=== PATIENT | female | born 1985 | race Caucasian/White ===

== ENCOUNTER 2016-06-08 08:09 | Day surgery (SDC) | payer BC ==
[~2016-06-08 08:09] MED LIST: Lidocaine 1%/Sod Bicarbonate in NS 8.4% 1 ML Syringe IV PRN; Sodium Chloride 0.9% 10 ML Syringe FLUSH PRN
[2016-06-08] MEDS ORDERED: Lidocaine 1% with EPINEPHrine 1:100,000 20 ML MDV ONE (08:28)
[2016-06-08] MEDS ORDERED: Sodium Chloride 0.9% 50 ML SDV ONE (08:28)
[2016-06-08] MEDS ORDERED: Bupivacaine 0.5% 30 ML SDV ONE (08:28)
[2016-06-08] MEDS: Lactated Ringers 1,000 ML IV SCH ×2 (08:30→12:26)
--- NOTE | 2016-06-08 08:53 | PCM.PREANE ---
Preanesthetic Assessment - Anesthesia/Transfusion/Family Hx Anesthesia History: Prior Anesthesia Without Reaction Family History of Anesthesia Reaction: No Transfusion History: No Prior Transfusion(s) Intubation History: Unknown - Review of Systems General: Weakness, Fatigue Pulmonary: No Symptoms (Current smoker: less than 1 pack/day times 20 years.), Cough (dry cough noted.) Gastrointestinal: No symptoms (History of GERD), Difficulty swallowing (at times due to increased size of thyroid. (Sveta's)) Neurological: Numbness (in hands noted on occasion.) Other: Reports: None (History of ETOH abuse per H&P.), Thyroid Problems ( Hahimoto's disease noted.), Sinus Problem (Allergic rhinitis), Throat Pain ( sore throat noted prior to surgery.), Anxiety - Physical Assessment NPO Status Date: 06/08/16 NPO Status Time: 00:00 Pulse: 63 O2 Sat by Pulse Oximetry: 100 Respiratory Rate: 16 Blood Pressure: 102/68 Vital Signs: Last Vital Signs Temp 98.6 C H 06/08/16 08:20 Pulse 63 06/08/16 08:20 Resp 16 06/08/16 08:20 BP 102/68 06/08/16 08:20 Pulse Ox 100 06/08/16 08:20 Height: 1.65 m Weight: 53.07 kg ASA Class: 2 Mental Status: Alert & Oriented x3 Airway Class: Mallampati = 2 Dentition: Reports: Normal Dentition, Caries Thyro-Mental Finger Breadths: 3 Mouth Opening Finger Breadths: 3 ROM/Head Extension: Full Lungs: Clear to auscultation, Normal respiratory effort Cardiovascular: Regular Rate, Regular Rhythm - Lab Values: Laboratory Last Values WBC 7.76 K/mm3 (3.98-10.04) 06/07/16 13:44 RBC 4.75 M/mm3 (3.98-5.22) 06/07/16 13:44 Hgb 14.4 gm/L (11.2-15.7) 06/07/16 13:44 Hct 43.1 % (34.1-44.9) 06/07/16 13:44 MCV 90.7 fl (79.4-94.8) 06/07/16 13:44 MCH 30.3 pg (25.6-32.2) 06/07/16 13:44 MCHC 33.4 g/dl (32.2-35.5) 06/07/16 13:44 RDW Std Deviation 46.9 fL (36.4-46.3) H 06/07/16 13:44 Plt Count 277 K/mm3 (182-369) 06/07/16 13:44 MPV 10.3 fl (9.4-12.3) 06/07/16 13:44 Neut % (Auto) 54.8 % (34.0-71.1) 06/07/16 13:44 Lymph % (Auto) 30.0 % (19.3-51.7) 06/07/16 13:44 [place] % (Auto) 7.9 % (4.7-12.5) 06/07/16 13:44 Eos % (Auto) 6.4 (0.7-5.8) H 06/07/16 13:44 Baso % (Auto) 0.8 % (0.1-1.2) 06/07/16 13:44 Neut # (Auto) 4.25 K/mm3 (1.56-6.13) 06/07/16 13:44 Lymph # (Auto) 2.33 K/mm3 (1.18-3.74) 06/07/16 13:44 [place] # (Auto) 0.61 K/mm3 (0.24-0.36) H 06/07/16 13:44 Eos # (Auto) 0.50 K/mm3 (0.04-0.36) H 06/07/16 13:44 Baso # (Auto) 0.06 K/mm3 (0.01-0.08) 06/07/16 13:44 Sodium 138 mEq/L (136-145) 06/07/16 13:44 Potassium 3.8 mEq/L (3.5-5.1) 06/07/16 13:44 Chloride 103 mEq/L (98-107) 06/07/16 13:44 Carbon Dioxide 26 mEq/L (21-32) 06/07/16 13:44 Anion Gap 12.8 (5-15) 06/07/16 13:44 BUN 11 mg/dL (7-18) 06/07/16 13:44 Creatinine 0.7 mg/dL (0.55-1.02) 06/07/16 13:44 Est Cr Clr Drug Dosing 102.32 mL/min 06/07/16 13:44 Estimated GFR (MDRD) > 60 mL/min (>60) 06/07/16 13:44 BUN/Creatinine Ratio 15.7 (14-18) 06/07/16 13:44 Glucose 93 mg/dL (74-106) 06/07/16 13:44 Calcium 8.9 mg/dL (8.5-10.1) 06/07/16 13:44 Total Bilirubin 1.2 mg/dL (0.2-1.0) H 06/07/16 13:44 AST 17 U/L (15-37) 06/07/16 13:44 ALT 21 U/L (14-59) 06/07/16 13:44 Alkaline Phosphatase 51 U/L (46-116) 06/07/16 13:44 Total Protein 8.0 g/dl (6.4-8.2) 06/07/16 13:44 Albumin 4.5 g/dl (3.4-5.0) 06/07/16 13:44 Globulin 3.5 gm/dL 06/07/16 13:44 Albumin/Globulin Ratio 1.3 (1-2) 06/07/16 13:44 Urine Color Yellow (Yellow) 06/07/16 13:44 Urine Appearance Clear (Clear) 06/07/16 13:44 Urine pH 6.5 (5.0-8.0) 06/07/16 13:44 Ur Specific [place] 1.020 (1.005-1.030) 06/07/16 13:44 Urine Protein Negative (Negative) 06/07/16 13:44 Urine Glucose (UA) Negative (Negative) 06/07/16 13:44 Urine Ketones Negative (Negative) 06/07/16 13:44 Urine Occult Blood Negative (Negative) 06/07/16 13:44 Urine Nitrite Negative (Negative) 06/07/16 13:44 Urine Bilirubin Negative (Negative) 06/07/16 13:44 Urine Urobilinogen 0.2 (0.2-1.0) 06/07/16 13:44 Ur Leukocyte Esterase Negative (Negative) 06/07/16 13:44 Urine HCG, Qual Negative (NEGATIVE) 06/07/16 13:44 Blood Type A NEGATIVE 06/07/16 13:44 Gel Antibody Screen Negative 06/07/16 13:44 Lab values above noted and reviewed. - Imaging/EKG Impressions: Echocardiogram: Left DF=55-60%, trace mitral valve regurgitation, trace tricuspid valve regurgitation - Allergies Allergies/Adverse Reactions: Allergies Allergy/AdvReac Type Severity Reaction Status Date / Time lactose Allergy Cannot Verified 06/24/15 08:56 Remember orange Allergy Cannot Verified 01/06/16 16:43 Remember peanut Allergy Wheezing Verified 06/24/15 08:56 peanut oil Allergy Wheezing Verified 06/24/15 08:56 Penicillins Allergy Rash Verified 06/02/15 10:12 pollen extracts Allergy Cannot Verified 01/06/16 16:43 Remember tomato Allergy Cannot Verified 01/06/16 16:43 Remember - Anesthesia Plan Pre-Op Medication Ordered: None - Acknowledgements Anesthesia Type Planned: General Anesthesia Pt an Appropriate Candidate for the Planned Anesthesia: Yes Alternatives and Risks of Anesthesia Discussed w Pt/Guardian: Yes Pt/Guardian Understands and Agrees with Anesthesia Plan: Yes PreAnesthesia Questionnaire HEENT History: Reports: Allergic rhinitis, Impaired vision Cardiovascular History: Reports: Other (see below) Other Cardiovascular History: aortic dilation Gastrointestinal History: Reports: GERD, Other (see below) Other Gastrointestinal History: intussception [employer] SU[employer]IST History: Reports: Other (see below) Other OB/BYN History: upcoming laproscopy 01-07-16 Musculoskeletal History: Reports: Other (see below) Other Musculoskeletal History: back pain Neurological History: Reports: Other (see below) Other Neuro History: dropped on head in March, has headaches now Psychiatric History: Reports: Anxiety Other Psychiatric History: paranoia, etoh abuse, drug abuse Endocrine/Metabolic History: Reports: Other (see below) Other Endocrine/Metabolic History: hashimotos disease Hematologic History: Reports: Anemia - Infectious Disease History Infectious Disease History: Reports: Chicken pox - Past Surgical History HEENT Surgical History: Reports: Oral surgery Female Surgical History: Reports: section, D&C, Tubal ligation - SUBSTANCE USE Smoking Status *Q: Current Every Day Smoker Tobacco Use Within Last Twelve Months: Cigarettes Recreational Drug Use History: No - HOME MEDS Home Medications: Home Meds Calcium Carbonate [Calcium] 600 mg PO DAILY 01/06/16 [History] Diazepam 0.5 tab PO DAILY PRN 01/06/16 [History] Levothyroxine Sodium 1 tab PO DAILY 01/06/16 [History] Lysine 500 mg PO DAILY 01/06/16 [History] Meloxicam 15 mg PO DAILY 01/06/16 [History] Multivitamin [Multivitamins] 1 tab PO DAILY 01/06/16 [History] Thyroid [[place] Thyroid] 1 tab PO DAILY 01/06/16 [History] busPIRone HCl [Buspirone HCl] 1 tab PO BID 01/06/16 [History] Acetaminophen/oxyCODONE [Percocet 325-5 MG] 2 tab PO Q4H PRN #20 tablet [Rx] - CURRENT (IN HOUSE) MEDS Current Meds: Current Medications Lactated Ringer's (Ringers, Lactated) 1,000 mls @ 125 mls/hr IV ASDIRECTED TANA Stop: 06/08/16 23:00 Lidocaine/Sodium Bicarbonate (Buffered Lidocaine 1% In Ns 8.4%) 0.25 ml IV ONETIME PRN PRN Reason: Prior to IV Start Stop: 06/08/16 18:00 Sodium Chloride (Saline Flush) 10 ml FLUSH ASDIRECTED PRN PRN Reason: Keep Vein Open Stop: 06/08/16 18:00 Discontinued Medications Bupivacaine HCl (Marcaine 0.5%) Confirm Administered Dose 30 ml .ROUTE .STK-MED ONE Stop: 06/08/16 08:29 Lidocaine/Epinephrine (Xylocaine 1% With Epinephrine 1:100,000) Confirm Administered Dose 20 ml .ROUTE .STK-MED ONE Stop: 06/08/16 08:29 Sodium Chloride (Normal Saline) Confirm Administered Dose 50 ml .ROUTE .STK-MED ONE Stop: 06/08/16 08:29
[2016-06-08] MEDS ORDERED: Midazolam 1 MG/ML 2 ML SDV ONE (09:32)
[2016-06-08] MEDS ORDERED: fentaNYL 250 MCG/5 ML SDV ONE (09:32)
[2016-06-08] MEDS ORDERED: Propofol 200 MG/20 ML SDV ONE (09:32)
[2016-06-08] MEDS ORDERED: Ketamine 500 mg/10 ML MDV ONE (09:32)
[2016-06-08] MEDS ORDERED: Ondansetron 4 MG/2 ML SDV ONE (09:33)
[2016-06-08] MEDS ORDERED: Dexamethasone 4 MG/ML 5 ML MDV ONE (09:33)
[2016-06-08] MEDS ORDERED: Lidocaine 1% 4 ML ONE (09:33)
[2016-06-08] MEDS ORDERED: Rocuronium 50 MG/5 ML Vial ONE (09:33)
[2016-06-08] MEDS ORDERED: fentaNYL 100 MCG/2 ML SDV IVPUSH PRN (10:30)
[2016-06-08] MEDS ORDERED: diphenhydrAMINE 50 MG/ML SDV IVPUSH PRN (10:30)
[2016-06-08] MEDS ORDERED: Ondansetron 4 MG/2 ML SDV IVPUSH PRN ×2 (10:30→11:42)
[2016-06-08] MEDS ORDERED: Meperidine PF 50 MG/ML Syringe IVPUSH PRN (10:30)
[2016-06-08] MEDS ORDERED: HYDROmorphone 1 MG/ML Syringe ONE (10:39)
[2016-06-08] MEDS ORDERED: Ketorolac 30 MG/ML SDV ONE (10:47)
[2016-06-08] MEDS ORDERED: Neostigmine Methylsulfate 1 MG/ML 5 ML Syringe ONE (10:47)
--- NOTE | 2016-06-08 11:32 | PCM.POSTAN ---
POST ANESTHESIA ASSESSMENT - MENTAL STATUS Mental Status: alert, oriented - VITAL SIGNS Pulse Rate: 73 SaO2: 100 Resp Rate: 14 Blood Pressure: 121/63 Temperature: 36.9 C - RESPIRATORY Respiratory Status: respiratory rate WNL, airway patent, O2 saturation stable, supplemental oxygen - CARDIOVASCULAR CV Status: pulse rate WNL, blood pressure stable - GASTROINTESTINAL GI Status: no symptoms - PAIN Pain Score: 4 (opioid given) - POST OP HYDRATION Hydration Status: adequate & stable
[2016-06-08] MEDS: HYDROmorphone 0.5 MG/0.5 ML Syringe IVPUSH PRN ×2 (11:39→12:18)
[2016-06-08] MEDS ORDERED: Acetaminophen/HYDROcodone 325-10 MG Tab PO PRN (11:41)
--- NOTE | 2016-06-08 11:48 | PCM.OPNOTE ---
- General Post-Op/Procedure Note Date of Surgery/Procedure: 06/08/16 Operative Procedure(s): Laparoscopically assisted vaginal hysterectomy with left oophorectomy and bilateral salpingectomy Findings: Minimal scarring was noted. Appendix, liver edge, posterior cul-de-sac within normal ends. Entry cul-de-sac had scarring secondary to previous C-sections. Pre Op Diagnosis: Pelvic pain Post-Op Diagnosis: Same Anesthesia Technique: General ET tube Other Anesthesia Type: Marcaine 0.5% locally, lidocaine quarter percent with epinephrine locally Primary Surgeon: Wilmer Riojas Secondary Surgeon: Kana De Los Santos Anesthesia Provider: Terrell Llamas Pathology: Uterus, fallopian tubes and left ovary as one specimen. Fluid Replacement, Intraop: 1,800 Output, Urine Amount: 200 EBL in mLs: 25 Drain/Tube Comments:: Indwelling bladder catheter-during surgery only Complications: None Condition: Good Free Text/Narrative:: Surgery duration: 68 minutes Procedure: The patient was taken to the operating room and placed in supine position on the operating table. She received 2 g of Ancef preoperatively for infection prophylaxis. She had sequential compression stockings in place for DVT prophylaxis. She was administered general endotracheal anesthesia. After adequate anesthesia the patient was placed in a dorsal lithotomy position and prepped and draped in the usual fashion for this procedure. The uterine manipulator was then placed in usual fashion. Bolaños catheter was placed. Laparoscopy was then performed with the infraumbilical and suprapubic 5 mm port sites being developed with infiltration with Marcaine 0.5% 3-5 cc each. Verres needle was used to create a pneumoperitoneum using approximately 3 L of CO2. Laparoscopic sleeve and trocar were then placed without incident. Laparoscope was placed and the suprapubic site was developed with direct visualization with the scope. Eventually 2 other lateral 5 millimeter sites were developed under direct visualization also in the same fashion. The right and left fallopian tubes were found to be status post tubal ligation. The right ovary was left in place. The left fallopian tube was taken down by crossclamping and developed in the meso-salpinx pedicles. This was then carried down to the triple ligament including the broad ligament, the ovarian ligament and round ligament were then taken down in a routine fashion using the Endoseal system. Broad ligament was then taken down to the level of the uterine vasculature and uterine vasculature on the right side was then crossclamped and cauterized. Care was taken to avoid the ureter which was identified prior to the broad ligament development. The same procedure was done on the left side except that the fallopian tube and ovary were removed with the specimen.. At this point the anterior bladder flap was then developed and the bladder was pushed back off using sharp and blunt dissection. At this point the uterus was removed vaginally. The patient was repositioned weighted speculum was placed in the vagina. The cervix is infiltrated with lidocaine quarter percent with epinephrine-20 cc total. A full circumference incision was made through the vaginal epithelium and the bladder blade flap was pushed well back off the cervix. Posterior cul-de-sac was entered sharply. Left uterosacral ligament was then taken down using a LigaSure vaginal clamp system. It was done on the right side. The cardinal ligaments was taken down to the level of the uterine vasculature which had already been developed. At this time the specimen was completely removed. At this time hemostasis was confirmed and sponge, instrument and needle counts were correct. The peritoneal cavity was then closed using a pursestring suture externalized and pedicles in case of bleeding. Vaginal cuff was closed with 0 Monocryl in a running locked suture from right to left side. The laparoscope was again placed and pneumoperitoneum was reestablished. It should be noted gloves were changed a prior to this portion of the procedure. Hemostasis was confirmed no abnormalities were noted and at this time procedures discontinued. The 5 mm port port sleeves were removed without incident. The upper sleeve was removed after pneumoperitoneum was reversed. Each of these incisions closed with a single interrupted suture of 4-0 Monocryl. There further approximated with Dermabond skin glue. Patient had Bolaños catheter removed at the end of the procedure. She was awakened from general endotracheal anesthesia after being referred returned to a supine position and tolerated procedure well. She left the operating room in good condition.
--- NOTE | 2016-06-08 11:56 | PCM48HPAN ---
Post Anesthesia Note - EVALUATION WITHIN 48HRS OF ANESTHETIC Vital Signs in Normal Range: Yes Patient Participated in Evaluation: Yes Respiratory Function Stable: Yes Airway Patent: Yes Cardiovascular Function Stable: Yes Hydration Status Stable: Yes Pain Control Satisfactory: Yes (pt is having pain but it is tolerable at this time) Nausea and Vomiting Control Satisfactory: Yes Mental Status Recovered: Yes
[2016-06-08] MEDS ORDERED: Loratadine 10 MG Tab PO ONE (13:25)
[2016-06-08] MEDS ORDERED: Acetaminophen/HYDROcodone 325-5 MG Tab PO ONE (13:44)
[2016-06-08] MEDS ORDERED: LORazepam 0.5 MG Tab PO ONE (14:12)
[2016-06-08 14:30] VITALS: BP 117/63
== END 2016-06-08 14:45 | disposition home or self-care (01) ==
LOC: JD.SDS 08:09
PROVIDERS: ATTEND Obstetrics & Gynecology
DX: N83.12 Corpus luteum cyst of left ovary (principal); N80.0 Endometriosis of uterus; N83.8 Other noninflammatory disorders of ovary, fallopian tube and broad ligament; N83.02 Follicular cyst of left ovary; Z88.0 Allergy status to penicillin; Z91.010 Allergy to peanuts; Z91.018 Allergy to other foods
CPT/HCPCS: 36415; 58552; 80053; 81003; 81025; 85025; 86850; 86900; 86901; 88307; A9270; J1100; J1170; J1200; J1885; J2250; J2405; J2710; J3010; J7120; 00944; J2704